=== PATIENT | male | born 1995 | race Caucasian/White ===

== ENCOUNTER 2020-04-08 11:44 | Emergency (ER) | payer OTHER ==
[~2020-04-08] VITALS: Ht 188 cm; Wt 102.0 kg
--- NOTE | 2020-04-08 12:38 | NUR ---
PT PLACED ON HEART MONITOR, BP CUFF, PULSE OX. VSS/IMPROVED FROM TRIAGE/UPDATED IN COMPUTER. PT UPDATED ON POC. CALL LIGHT WITHIN REACH. URINAL AT BS.
--- NOTE | 2020-04-08 12:49 | NUR ---
URINE COLLECTED/SENT TO LAB.
[2020-04-08 12:51] LABS: BASOPHILS # (AUTO) 0.02 x10^3/uL (0-0.1); BASOPHILS % (AUTO) 0 % (0-1); EOSINOPHILS # (AUTO) 0.23 x10^3/uL (0-0.4); EOSINOPHILS % (AUTO) 3 % (1-7); LYMPHOCYTES # (AUTO) 1.54 x10^3/uL (1-3.4); LYMPHOCYTES % (AUTO) 23 % (22-44); MD NO; MEAN CORPUSCULAR HEMOGLOBIN 29.9 pg (27.5-34.5); MEAN CORPUSCULAR HGB CONC 33.4 g/dL (33.2-36.2); MEAN CORPUSCULAR VOLUME 89.6 fL (81-97); MEAN PLATELET VOLUME 6.7 fL (7.4-10.4); MONOCYTES # (AUTO) 0.42 x10^3/uL (0.2-0.8); MONOCYTES % (AUTO) 6 % (2-9); NEUTROPHILS # (AUTO) 4.58 x10^3/uL (1.8-6.8); NEUTROPHILS % (AUTO) 68 % (42-75); PLATELET COUNT 307 x10^3/uL (130-400); RED BLOOD COUNT 4.85 x10^6/uL (4.38-5.82); RED CELL DISTRIBUTION WIDTH 12.7 % (9.4-14.8)
[2020-04-08 12:58] LABS: ANION GAP 6 mmol/L (5-15); CALCIUM 8.5 mg/dL (8.5-10.1); CHLORIDE 112 mmol/L (98-107)
[2020-04-08 13:02] LABS: ALANINE AMINOTRANSFERASE 38 U/L (12-78); ALKALINE PHOSPHATASE 110 U/L (45-117); BILIRUBIN,TOTAL 0.3 mg/dL (0.2-1.0); CREATININE 1.33 mg/dL (0.7-1.3); TOTAL PROTEIN 7.5 g/dL (6.4-8.2)
[2020-04-08 13:25] LABS: COCAINE SCREEN, URINE Negative (Negative); METHADONE SCREEN, URINE Negative (Negative)
[2020-04-08 13:31] LABS: AMPHETAMINE SCREEN, URINE Negative (Negative); BARBITURATE SCREEN, URINE Negative (Negative); BENZODIAZEPINE SCREEN, URINE Negative (Negative); CANNABINOID SCREEN, URINE Negative (Negative); OPIATE SCREEN, URINE Negative (Negative)
--- NOTE | 2020-04-08 13:44 | NUR ---
PT FOR RECHECK.
[2020-04-08 14:21] VITALS: BP 122/61
== END 2020-04-08 14:26 | disposition home or self-care (01) ==
LOC: ED 14:05
DX: R00.2 Palpitations (principal); I45.10 Unspecified right bundle-branch block; I44.4 Left anterior fascicular block; R00.0 Tachycardia, unspecified; F41.1 Generalized anxiety disorder; R20.0 Anesthesia of skin
CPT/HCPCS: 36415; 80053; 80307; 85025; 93005; 99284